=== PATIENT | male | born 1970 | race African-American/Black ===

== ENCOUNTER 2023-01-19 11:21 | Emergency (ER) | payer MEDICAID ==
[~2023-01-19] VITALS: Ht 175.3 cm; Wt 70.0 kg
[~2023-01-19 11:21] MED LIST: PHEN100C4 MT
[2023-01-19 11:25] VITALS: BP 130/70
[2023-01-19 15:03] LABS: EOSINOPHILS % 7.3 % (0.0-5.0); HEMATOCRIT. 36.4 % (42.0-52.0); HEMOGLOBIN. 11.1 g/dL (14.0-18.0); LYMPHOCYTES % 28.6 % (20.0-50.0); MEAN CORPUSCULAR HEMOGLOBIN 24.9 pg (28.0-32.0); MEAN CORPUSCULAR VOLUME 82.1 fL (80.0-94.0); MEAN PLATELET VOLUME 7.5 fl (7.4-10.4); MONOCYTES % 10.3 % (2.0-8.0); NEUTROPHILS % 52.8 % (40.0-76.0); PLATELET 399 x1000/uL (130-400); RED BLOOD CELL COUNT 4.44 mill/uL (4.7-6.1); RED CELL DISTRIBUTION WIDTH 21.2 % (11.6-14.6)
[2023-01-19 15:05] LABS: CHLORIDE 114 mEq/L (98-107)
[2023-01-19 15:22] LABS: ETHANOL BLOOD 389 mg/dL
== END 2023-01-19 18:30 | disposition home or self-care (01) ==
LOC: ER 11:21
DX: F10.229 Alcohol dependence with intoxication, unspecified (principal); Y90.8 Blood alcohol level of 240 mg/100 ml or more; G93.89 Other specified disorders of brain; G40.909 Epilepsy, unspecified, not intractable, without status epilepticus; I11.0 Hypertensive heart disease with heart failure; I50.9 Heart failure, unspecified
CPT/HCPCS: 36415; 70450; 71045; 80053; 80320; 85025; 99285; C1893; Z7610; G0480